=== PATIENT | female | born 1950 | race Caucasian/White ===

== ENCOUNTER 2017-01-19 16:13 | Emergency (ER) | payer OTHER ==
[2017-01-19 18:53] LABS: Hematocrit 41 % (35-47); Hemoglobin 13.6 g/dl (12.0-16.0); Mean Corpuscular HGB Conc 34 g/dl (31-36); Mean Corpuscular Hemoglobin 31 pg (27-31); Mean Corpuscular Volume 92 fL (80-97); Mean Platelet Volume 9 um3 (7.4-10.4); Red Blood Count 4.45 10^6/ul (4.0-5.4); Red Cell Distribution Width 14 % (10.5-15)
[2017-01-19 19:09] LABS: Albumin 4.4 g/dL (3.2-5.2); Calcium 9.1 mg/dL (8.6-10.3); EGFR African American 92.3 (>60); EGFR Non-African American 71.8 (>60); Globulin 2.9 g/dL (2-4); Potassium 3.6 mmol/L (3.5-5.0); Total Bilirubin 0.5 mg/dL (0.2-1.0); Total Protein 7.3 g/dL (6.4-8.9)
[2017-01-19] MEDS ORDERED: NS 0.9% 1000 ML* 1,000 ML IV ONE (19:24)
[2017-01-19] MEDS ORDERED: Metoclopramide IV* 5 MG/ML 2 ML VIAL IV ONE (19:24)
[2017-01-19] MEDS ORDERED: Ketorolac INJ* 30 MG/ML 1 ML VIAL IV PUSH ONE (19:25)
[2017-01-19 19:27] LABS: Urine Bacteria Absent (Absent); Urine Bilirubin Negative (Negative); Urine Glucose 1+(50 mg/dL) (Negative); Urine Nitrite Negative (Negative)
--- NOTE | 2017-01-19 20:43 | ED ---
Influenza-Like Illness - HPI Summary HPI Summary: 66F presents with flu today. She states she went to her primary and was diagnosed with the flu and was started on tamiflu. She states her primary told her to take zofran before taking the medication. She states she did that and she vomited up the tamiflu. She states she places anything in his mouth that she feels like throwing up. She denies any diarrhea. She admits to dry cough and headache. She took tyenlol without relief. She states that has sinus congestion. minor sore throat. She sometimes feels chest pressure and SOB with cough. - History of Current Complaint Chief Complaint: EDFluSymptoms Time Seen by Provider: 01/19/17 19:11 - Allergy/Home Medications Allergies/Adverse Reactions: Allergies Allergy/AdvReac Type Severity Reaction Status Date / Time Fluoxetine AdvReac Severe VERY BAD Verified 07/30/15 16:55 DREAMS NARCOTICS AdvReac Severe Vomiting Uncoded 07/30/15 16:55 PMH/Surg Hx/FS Hx/Imm Hx Endocrine/Hematology History: Reports: Hx Thyroid Disease Respiratory History: Reports: Hx Asthma - very mild, only with resp illness - Cancer History Hx Hematologic Symptoms: No Hx Chemotherapy: No Hx Radiation Therapy: Yes - ORAL FOR THYROID - Surgical History Surgery Procedure, Year, and Place: THYROIDECTOMY, ACL REPAIR, FOOT SURGERY, ANKLE SURGERY, EXTRA RIB REMOVED Hx Anesthesia Reactions: No Infectious Disease History: No Infectious Disease History: Reports: Hx Shingles Denies: Traveled Outside the [place] in Last 30 Days - Family History Known Family History: Positive: Hypertension - Social History Alcohol Use: Occasionally Substance Use Type: Reports: None Hx Tobacco Use: No Smoking Status (MU): Never Smoked Tobacco Review of Systems Positive: Fever Negative: Chest Pain Positive: Cough Positive: Vomiting, Nausea All Other Systems Reviewed And Are Negative: Yes Physical Exam Triage Information Reviewed: Yes Vital Signs On Initial Exam: Initial Vitals Temp Pulse Resp BP Pulse Ox 99.5 F 84 16 153/93 96 01/19/17 16:23 01/19/17 16:23 01/19/17 16:23 01/19/17 16:23 01/19/17 16:23 Vital Signs Reviewed: Yes Appearance: Positive: Ill-Appearing Skin: Positive: Warm, Dry Head/Face: Positive: Normal Head/Face Inspection Eyes: Positive: Normal, EOMI, TY, Conjunctiva Clear ENT: Positive: Normal ENT inspection, Pharynx normal, TMs normal Respiratory/Lung Sounds: Positive: Clear to Auscultation, Breath Sounds Present Cardiovascular: Positive: Normal, RRR Abdomen Description: Positive: Nontender, Soft Bowel Sounds: Positive: Present Musculoskeletal: Positive: Normal Neurological: Positive: Normal Psychiatric: Positive: Normal - Mae Coma Scale Coma Scale Total: 15 Diagnostics - Vital Signs Vital Signs Temp Pulse Resp BP Pulse Ox 01/19/17 16:23 99.5 F 84 16 153/93 96 - Laboratory Lab Results: Lab Results 01/19/17 01/19/17 01/19/17 Range/Units 18:46 18:46 18:46 WBC 7.0 (3.5-10.8) 10^3/ul RBC 4.45 (4.0-5.4) 10^6/ul Hgb 13.6 (12.0-16.0) g/dl Hct 41 (35-47) % MCV 92 (80-97) fL MCH 31 (27-31) pg MCHC 34 (31-36) g/dl RDW 14 (10.5-15) % Plt Count 213 (150-450) 10^3/ul MPV 9 (7.4-10.4) um3 Neut % (Auto) 88.9 H (38-83) % Lymph % (Auto) 4.9 L (25-47) % [place] % (Auto) 5.6 (1-9) % Eos % (Auto) 0.2 (0-6) % Baso % (Auto) 0.4 (0-2) % Absolute Neuts (auto) 6.3 (1.5-7.7) 10^3/ul Absolute Lymphs (auto) 0.3 L (1.0-4.8) 10^3/ul Absolute Monos (auto) 0.4 (0-0.8) 10^3/ul Absolute Eos (auto) 0 (0-0.6) 10^3/ul Absolute Basos (auto) 0 (0-0.2) 10^3/ul Absolute Nucleated RBC 0 10^3/ul Nucleated RBC % 0 Sodium 138 (133-145) mmol/L Potassium 3.6 (3.5-5.0) mmol/L Chloride 103 (101-111) mmol/L Carbon Dioxide 26 (22-32) mmol/L Anion Gap 9 (2-11) mmol/L BUN 16 (6-24) mg/dL Creatinine 0.80 (0.51-0.95) mg/dL Est GFR ( Amer) 92.3 (>60) Est GFR (Non-Af Amer) 71.8 (>60) BUN/Creatinine Ratio 20.0 (8-20) Glucose 119 H (70-100) mg/dL Lactic Acid 0.7 (0.5-2.0) mmol/L Calcium 9.1 (8.6-10.3) mg/dL Magnesium 2.0 (1.9-2.7) mg/dL Total Bilirubin 0.50 (0.2-1.0) mg/dL AST 22 (13-39) U/L ALT 13 (7-52) U/L Alkaline Phosphatase 65 (34-104) U/L Total Protein 7.3 (6.4-8.9) g/dL Albumin 4.4 (3.2-5.2) g/dL Globulin 2.9 (2-4) g/dL Albumin/Globulin Ratio 1.5 (1-3) Urine Color Urine Appearance Urine pH (5-9) Ur Specific [place] (1.010-1.030) Urine Protein (Negative) Urine Ketones (Negative) Urine Blood (Negative) Urine Nitrate (Negative) Urine Bilirubin (Negative) Urine Urobilinogen (Negative) Ur Leukocyte Esterase (Negative) Urine WBC (Auto) (Absent) Urine RBC (Auto) (Absent) Urine Bacteria (Absent) Urine Glucose (Negative) Urine Ascorbic Acid (Negative) 01/19/17 Range/Units 19:08 WBC (3.5-10.8) 10^3/ul RBC (4.0-5.4) 10^6/ul Hgb (12.0-16.0) g/dl Hct (35-47) % MCV (80-97) fL MCH (27-31) pg MCHC (31-36) g/dl RDW (10.5-15) % Plt Count (150-450) 10^3/ul MPV (7.4-10.4) um3 Neut % (Auto) (38-83) % Lymph % (Auto) (25-47) % [place] % (Auto) (1-9) % Eos % (Auto) (0-6) % Baso % (Auto) (0-2) % Absolute Neuts (auto) (1.5-7.7) 10^3/ul Absolute Lymphs (auto) (1.0-4.8) 10^3/ul Absolute Monos (auto) (0-0.8) 10^3/ul Absolute Eos (auto) (0-0.6) 10^3/ul Absolute Basos (auto) (0-0.2) 10^3/ul Absolute Nucleated RBC 10^3/ul Nucleated RBC % Sodium (133-145) mmol/L Potassium (3.5-5.0) mmol/L Chloride (101-111) mmol/L Carbon Dioxide (22-32) mmol/L Anion Gap (2-11) mmol/L BUN (6-24) mg/dL Creatinine (0.51-0.95) mg/dL Est GFR ( Amer) (>60) Est GFR (Non-Af Amer) (>60) BUN/Creatinine Ratio (8-20) Glucose (70-100) mg/dL Lactic Acid (0.5-2.0) mmol/L Calcium (8.6-10.3) mg/dL Magnesium (1.9-2.7) mg/dL Total Bilirubin (0.2-1.0) mg/dL AST (13-39) U/L ALT (7-52) U/L Alkaline Phosphatase (34-104) U/L Total Protein (6.4-8.9) g/dL Albumin (3.2-5.2) g/dL Globulin (2-4) g/dL Albumin/Globulin Ratio (1-3) Urine Color Yellow Urine Appearance Clear Urine pH 5.0 (5-9) Ur Specific [place] 1.017 (1.010-1.030) Urine Protein 1+(30 mg/dl) H (Negative) Urine Ketones 2+ H (Negative) Urine Blood Negative (Negative) Urine Nitrate Negative (Negative) Urine Bilirubin Negative (Negative) Urine Urobilinogen Negative (Negative) Ur Leukocyte Esterase Negative (Negative) Urine WBC (Auto) Trace(0-5/hpf) (Absent) Urine RBC (Auto) Absent (Absent) Urine Bacteria Absent (Absent) Urine Glucose 1+(50 mg/dl) H (Negative) Urine Ascorbic Acid * H (Negative) Result Diagrams: 01/19/17 18:46 01/19/17 18:46 Lab Statement: Any lab studies that have been ordered have been reviewed, and results considered in the medical decision making process. Flu Symptom Course/Dx - Course Course Of Treatment: 66F presents with flu today. She states she went to her primary and was diagnosed with the flu and was started on tamiflu. She states her primary told her to take zofran before taking the medication. She states she did that and she vomited up the tamiflu. She states she places anything in his mouth that she feels like throwing up. She denies any diarrhea. She admits to dry cough and headache. She took tyenlol without relief. She states that has sinus congestion. minor sore throat. She sometimes feels chest pressure and SOB with cough. labs normal except crp. lungs CTA and abdomen soft nontender. gave fluids and reglan as has zofran and feels alittle better. gave dose of tamiflu liquid. sent home more zofran. patient understand and agrees with plan. - Diagnoses Differential Diagnosis/HQI/PQRI: Positive: Bronchitis, Influenza, Upper Respiratory Infection Provider Diagnoses: Influenza Discharge - Discharge Plan Condition: Good Disposition: HOME Prescriptions: Ondansetron ODT TAB* [Zofran 4 MG Odt TAB*] 4 mg PO Q6H PRN #10 tab.odt PRN Reason: Nausea Patient Education Materials: Influenza (ED) Referrals: Dylan Best MD [Primary Care Provider] - Additional Instructions: Take zofran up to two tablets every 6 hours Take Tylenol and ibuprofen for muscle aches and fever every 6 hours. Saline rinse can be used multiple times a day for nasal congestion Use humidifier in room or place bowls of warm water around room for cough Try to drink fluids every hour and eat as tolerated Follow up with primary within 5 days Return to ED if develop any new or worsening symptoms.
[2017-01-19] MEDS ORDERED: Oseltamivir SUSP* 6 MG/ML ORAL SYRINGE PO ONE (21:03)
[2017-01-19] MEDS ORDERED: Ondansetron INJ* 2 MG/ML VIAL IV ONE (22:07)
[2017-01-19] MEDS ORDERED: Ondansetron INJ* 2 MG/ML VIAL ONE (22:09)
[2017-01-19 22:24] VITALS: BP 123/76
== END 2017-01-19 22:22 | disposition home or self-care (01) ==
LOC: ED 16:13
DX: R11.2 Nausea with vomiting, unspecified (principal); R05 Cough
CPT/HCPCS: 36415; 80053; 81003; 81015; 83605; 83735; 85025; 96374; 96375; 99283; J1885; J2405; J2765

== ENCOUNTER 2021-02-04 06:16 | Observation (INO) ==
[~2021-02-04 06:16] MED LIST: Buffered Lidocaine 1% SYRIN 1 ml INTRADERM ONE; Lactated Ringers 1000 ml BAG 1,000 ML IV SCH
[2021-02-04] MEDS ORDERED: ceFAZolin 2 GM PREMIX 2 GM/50 ML BAG ONE (06:25)
[2021-02-04] MEDS ORDERED: Phenylephrine IV 10 MG/ML 1 ml VIAL ONE (07:21)
[2021-02-04] MEDS ORDERED: HYDROmorphone 1 MG/1 ML SYRINGE IV PRN (07:35)
[2021-02-04] MEDS ORDERED: DiMENhydriNATE IV 50 mg/ml 1 ml VIAL IV PUSH PRN (07:35)
[2021-02-04] MEDS ORDERED: Naloxone 0.4 mg VIAL 0.4 mg/ml 1 ml VIAL IV PRN (07:35)
[2021-02-04] MEDS ORDERED: Acetaminophen IV 1 GM/100ML 100 ML IV ONE (07:35)
[2021-02-04] MEDS ORDERED: Ondansetron 4 mg VIAL 2 MG/ML 2 ml VIAL IV PRN ×2 (07:35→08:44)
[2021-02-04] MEDS ORDERED: fentaNYL 100 mcg/2 ml 50 MCG/ML VIAL IV PRN (07:35)
[2021-02-04] MEDS ORDERED: Midazolam 2 mg/2 ml VIAL 1 mg/ml 2 ml VIAL (2 mg) ONE (07:40)
[2021-02-04] MEDS ORDERED: Bupivacaine 0.5% SDV PF 30ML VIAL ONE (07:42)
[2021-02-04] MEDS ORDERED: Dexamethasone IV 4 MG/ML VIAL 1 ml VIAL ONE (08:34)
[2021-02-04] MEDS ORDERED: Ondansetron 4 mg VIAL 2 MG/ML 2 ml VIAL ONE (08:34)
[2021-02-04] MEDS ORDERED: EPHEDrine (Pressors) 50 MG/ML VIAL ONE (08:35)
[2021-02-04] MEDS ORDERED: Lactulose 30 ml UDC PO PRN (08:44)
[2021-02-04] MEDS ORDERED: diPHENhydraMINE 25 mg TAB PO PRN (08:44)
[2021-02-04] MEDS ORDERED: Magnesium Hydroxide LIQ 30 ML UDC PO PRN (08:44)
[2021-02-04] MEDS ORDERED: Ondansetron ODT 4 mg TAB 4 MG TAB PO PRN (08:44)
[2021-02-04] MEDS ORDERED: Morphine 2 MG/ML SYRINGE IV PRN (08:44)
[2021-02-04] MEDS ORDERED: diPHENhydraMINE IV 50 MG/ML 1 ml VIAL (BENADRYL) IV PRN (08:44)
[2021-02-04] MEDS: Lactated Ringers 1000 ml BAG 1,000 ML IV SCH (12:50)
[2021-02-04] MEDS: Magnesium Hydroxide LIQ 30 ML UDC PO SCH ×2 (13:34→21:26)
[2021-02-04] MEDS: Vitamin THERAPEUTIC TAB PO SCH (13:34)
[2021-02-04] MEDS: ceFAZolin 1 GM ADVAN 1 GM in NS 0.9% 50 ML 50 ML IVPB SCH (15:28)
[2021-02-05] MEDS: ceFAZolin 1 GM ADVAN 1 GM in NS 0.9% 50 ML 50 ML IVPB SCH ×2 (00:25→08:36)
[2021-02-05] MEDS: Lactated Ringers 1000 ml BAG 1,000 ML IV SCH (00:25)
[2021-02-05 05:25] LABS: Hematocrit 32 % (35-47); Hemoglobin 10.5 g/dL (12.0-16.0); Mean Platelet Volume 8.4 fL (7.4-10.4); Platelet Count 238 10^3/uL (150-450)
[2021-02-05 05:43] LABS: Calcium 8.4 mg/dL (8.6-10.3); Potassium 3.7 mmol/L (3.5-5.0); eGFR CKD-EPI 72.6 (>60)
[2021-02-05 07:55] VITALS: BP 117/70
[2021-02-05] MEDS: Vitamin THERAPEUTIC TAB PO SCH (08:38)
[2021-02-05] MEDS: Magnesium Hydroxide LIQ 30 ML UDC PO SCH (08:39)
== END 2021-02-05 12:45 | disposition home or self-care (01) ==
LOC: OR 06:16 → SSU 06:16
PROVIDERS: ADMIT Orthopaedic Surgery Adult Reconstructive Orthopaedic Surgery; ATTEND Orthopaedic Surgery Adult Reconstructive Orthopaedic Surgery

== ENCOUNTER 2022-11-24 05:56 | Observation (INO) ==
[2022-11-24] MEDS ORDERED: Lactated Ringers 1000 ml BAG 1,000 ML IV SCH ×2 (06:00→11:00)
[2022-11-24] MEDS ORDERED: Buffered Lidocaine 1% SYRIN 1 ml INTRADERM ONE (06:00)
[2022-11-24] MEDS ORDERED: Famotidine IV 10 MG/ML 2 ml VIAL (20 mg) IV ONE (06:00)
[2022-11-24] MEDS ORDERED: Famotidine IV 10 MG/ML 2 ml VIAL (20 mg) ONE (06:15)
[2022-11-24] MEDS ORDERED: Tranexamic Acid 1 GM/100ML BAG 2,000 MG/200 ML BAG IV ONE (06:15)
[2022-11-24] MEDS ORDERED: ceFAZolin 2 GM in NS PREMIX 2 GM/100 ML BAG IVPB ONE (06:15)
[2022-11-24 06:43] LABS: Rapid COVID-19 Molecular Undetected (Undetected)
[2022-11-24] MEDS ORDERED: ROPIVACAINE 5 MG/ML 30 ML BTL (0.5%) ONE (07:17)
[2022-11-24] MEDS ORDERED: Midazolam 2 mg/2 ml VIAL 1 mg/ml 2 ml VIAL (2 mg) ONE (07:25)
[2022-11-24] MEDS ORDERED: Naloxone 0.4 mg VIAL 0.4 mg/ml 1 ml VIAL IV PRN (07:42)
[2022-11-24] MEDS ORDERED: Lidocaine 2% PF 5 ML VIAL ONE (07:49)
[2022-11-24] MEDS ORDERED: Dexamethasone IV 4 MG/ML VIAL 1 ml VIAL ONE (08:02)
[2022-11-24] MEDS ORDERED: Phenylephrine IV 10 MG/ML 1 ml VIAL ONE (08:02)
[2022-11-24] MEDS ORDERED: Ondansetron 4 mg VIAL 2 MG/ML 2 ml VIAL ONE (08:02)
[2022-11-24] MEDS ORDERED: Acetaminophen IV 1 GM/100ML 1,000 MG/100 ML BAG IV ONE (08:03)
[2022-11-24] MEDS ORDERED: Propofol 10 MG/ML 20 ML BTL ONE (09:17)
[2022-11-24] MEDS ORDERED: PHENYLEPHRINE DRIP IVPREMIX 50 MG/250 ML BAG IV SCH (10:00)
[2022-11-24] MEDS ORDERED: Tapentadol 50 mg TAB (NF) PO PRN (10:45)
[2022-11-24] MEDS ORDERED: Magnesium Hydroxide LIQ 30 ML UDC PO PRN (10:47)
[2022-11-24] MEDS ORDERED: Lactulose 30 ml UDC PO PRN (10:47)
[2022-11-24] MEDS ORDERED: Ondansetron 4 mg VIAL 2 MG/ML 2 ml VIAL IV PRN (10:47)
[2022-11-24] MEDS ORDERED: Ondansetron ODT 4 mg TAB 4 MG TAB PO PRN (10:47)
[2022-11-24] MEDS ORDERED: Scopolamine 1 mg/72hr PATCH TRANSDERM PRN (10:54)
[2022-11-24] MEDS ORDERED: Scopolamine 1 mg/72hr PATCH TRANSDERM SCH (12:00)
[2022-11-24] MEDS ORDERED: ceFAZolin 1 GM ADVAN 1 GM in NS 0.9% 50 ML 50 ML IVPB SCH (16:00)
[2022-11-24 17:31] VITALS: BP 118/75
[2022-11-24] MEDS ORDERED: Magnesium Hydroxide LIQ 30 ML UDC PO SCH (21:00)
[2022-11-25] MEDS ORDERED: Vitamin THERAPEUTIC TAB PO SCH (09:00)
== END 2022-11-24 17:40 | disposition home or self-care (01) ==
LOC: OR 05:56 → SSU 05:56
PROVIDERS: ADMIT Orthopaedic Surgery Adult Reconstructive Orthopaedic Surgery; ATTEND Orthopaedic Surgery Adult Reconstructive Orthopaedic Surgery